=== PATIENT | female | born 1950 | race Caucasian/White ===

== ENCOUNTER 2021-01-17 20:48 | Emergency (ER) | payer OTHER ==
[~2021-01-17] VITALS: Ht 149.9 cm; Wt 53.5 kg
[2021-01-17 20:53] VITALS: BP_SYST 194
[2021-01-17] MEDS ORDERED: MECLIZINE HCL 25 MG TABLET (ANITVERT) PO ONE (22:30)
[2021-01-17 23:28] LABS: BILIRUBIN,URINE NEGATIVE (NEGATIVE); BLOOD, URINE 1+ (NEGATIVE); CLARITY/URINE CLEAR (CLEAR); COLOR,URINE YELLOW (YELLOW); GLUCOSE,URINE NEGATIVE (NEGATIVE); KETONES,URINE NEGATIVE (NEGATIVE); LEUKOCYTE ESTERASE ,URINE NEGATIVE (NEGATIVE); NITRITE, URINE NEGATIVE (NEGATIVE); PH,URINE 7.5 (5.0-8.0); PROTEIN URINE 2+ (NEGATIVE); UROBILINOGEN,URINE 0.2 (0.2-1.0)
[2021-01-17 23:31] LABS: BACTERIA,URINE FEW /HPF (None Seen); WBC,URINE 0-3 /HPF (0-3)
[2021-01-17 23:34] LABS: BASOPHILS % (AUTO) 0.3 % (0.0-2.0); EOSINOPHILS % (AUTO) 0.1 % (0.0-4.0); HEMATOCRIT 38.1 % (36-48); HEMOGLOBIN 13.3 g/dL (12.0-16.0); LYMPHOCYTES # (AUTO) 1.9 K/uL (1.0-5.5); LYMPHOCYTES % (AUTO) 19.2 % (20.5-51.5); MEAN CORPUSCULAR HEMOGLOBIN 29 pg (27-31); MEAN CORPUSCULAR HGB CONC 35 % (32-36); MEAN CORPUSCULAR VOLUME 84 fL (79.0-98.0); MONOCYTES # (AUTO) 0.4 K/uL (0.0-1.0); MONOCYTES % (AUTO) 3.9 % (1.7-9.3); NEUTROPHILS # (AUTO) 7.6 K/uL (1.8-7.7); NEUTROPHILS % (AUTO) 76.5 % (40.0-70.0); PLATELET COUNT (AUTO) 202 K/uL (130-430); RED BLOOD CELL COUNT(AUTO) 4.56 MIL/uL (4.2-6.2); RED CELL DISTRIBUTION WIDTH 12.8 % (9.0-15.0); WHITE BLOOD COUNT (AUTO) 9.9 K/uL (4.8-10.8)
[2021-01-17 23:40] LABS: CALCIUM 9.5 mg/dL (8.4-11.0); CREATININE 0.79 mg/dL (0.55-1.30); POTASSIUM 3.4 mmol/L (3.5-5.1)
[2021-01-17 23:53] LABS: ALBUMIN 4.3 g/dL (3.4-4.8); FREE T4 (FREE THYROXINE) 1.3 ng/dl (0.8-1.5); THYROID STIMULATING HORMONE 4.6 uIu/mL (0.36-3.74); TOTAL BILIRUBIN 0.7 mg/dL (0.0-1.0)
[2021-01-17 23:58] LABS: INR 0.9 (0.8-1.2); PROTHROMBIN TIME 9.7 SECS (9.5-12.5)
[2021-01-18] MEDS ORDERED: MECL-103 PO (01:31)
[2021-01-18 01:39] VITALS: BP_SYST 125
== END 2021-01-18 01:39 | disposition home or self-care (01) ==
LOC: SED 20:48
DX: R42 Dizziness and giddiness (principal); Z88.1 Allergy status to other antibiotic agents; Z79.899 Other long term (current) drug therapy
CPT/HCPCS: 36415; 70450; 76376; 80053; 81000; 84439; 84443; 84484; 85025; 85610; 85730; 93005; 99285; J8597

== ENCOUNTER 2022-08-20 22:56 | Emergency (ER) | payer OTHER ==
[~2022-08-20] VITALS: Ht 149.9 cm; Wt 52.2 kg
[~2022-08-20 22:56] MED LIST: MECL-103 PO
[2022-08-20 23:11] VITALS: BP_SYST 149
--- NOTE | 2022-08-20 23:19 | NUR ---
Patient triaged and placed in waiting room. VSS and patient appears in no acute distress at this time. Accompanied by , awaiting available bed, and MD Serrano notified of need for MSE.
--- NOTE | 2022-08-20 23:23 | NUR ---
Patient to ER bed H2 to gown for evaluation. Side rails up.
--- NOTE | 2022-08-20 23:25 | NUR ---
ER Dr. Serrano at bedside examining patient.
[2022-08-20] MEDS ORDERED: KETOROLAC TROMETHAMINE 60 MG/2 ML VIAL IM ONE (23:30)
[2022-08-20] MEDS ORDERED: IBUP-1969 PO (23:46)
[2022-08-20] MEDS ORDERED: HYDR-3917 PO (23:46)
--- NOTE | 2022-08-20 23:56 | NUR ---
PT MEDICATED ORDERED; TOLERATED WELL.
[2022-08-21 00:05] VITALS: BP_SYST 134
--- NOTE | 2022-08-21 00:08 | NUR ---
Patient given written and verbal discharge instructions and verbalizes understanding. ER MD Serrano discussed with patient the results and treatment provided. Patient in stable condition. ID arm band removed. Rx of [place] and Ibuprofen sent to preferred pharmacy. Patient educated on pain management and to follow up with PMD. Pain Scale 1/10. Opportunity for questions provided and answered. Medication side effect fact sheet provided.
== END 2022-08-20 23:59 | disposition home or self-care (01) ==
LOC: SED 22:56
DX: M25.512 Pain in left shoulder (principal); I10 Essential (primary) hypertension; Z88.1 Allergy status to other antibiotic agents; Z79.899 Other long term (current) drug therapy
CPT/HCPCS: 99283; 96372; J1885

== ENCOUNTER 2022-09-05 19:10 | Emergency (ER) | payer OTHER ==
[~2022-09-05] VITALS: Ht 149.9 cm; Wt 53.5 kg
[~2022-09-05 19:10] MED LIST changes: +HYDR-3917 PO; +IBUP-1969 PO
[2022-09-05] MEDS ORDERED: ONDANSETRON HCL 4 MG/2 ML VIAL IVP ONE (19:45)
[2022-09-05] MEDS ORDERED: MAG HYDROX/AL HYDROX/SIMETH 30 ML, DICYCLOMINE HCL 20 MG, LIDOCAINE VISCOUS 2% 15ML (PO... PO ONE ×3 (19:45)
[2022-09-05] MEDS ORDERED: NACL 0.9% 1,000 ML IV ONE (19:45)
[2022-09-05 20:05] VITALS: BP_SYST 137
[2022-09-05 20:09] LABS: BASOPHILS % (AUTO) 0.2 % (0.0-2.0); EOSINOPHILS % (AUTO) 0.1 % (0.0-4.0); HEMATOCRIT 41.6 % (36-48); HEMOGLOBIN 14.5 g/dL (12.0-16.0); LYMPHOCYTES # (AUTO) 2.9 K/uL (1.0-5.5); LYMPHOCYTES % (AUTO) 18.1 % (20.5-51.5); MEAN CORPUSCULAR HEMOGLOBIN 30 pg (27-31); MEAN CORPUSCULAR HGB CONC 35 % (32-36); MEAN CORPUSCULAR VOLUME 86 fL (79.0-98.0); MONOCYTES # (AUTO) 0.8 K/uL (0.0-1.0); MONOCYTES % (AUTO) 4.8 % (1.7-9.3); NEUTROPHILS # (AUTO) 12.2 K/uL (1.8-7.7); NEUTROPHILS % (AUTO) 76.8 % (40.0-70.0); PLATELET COUNT (AUTO) 238 K/uL (130-430); RED BLOOD CELL COUNT(AUTO) 4.83 MIL/uL (4.2-6.2); WHITE BLOOD COUNT (AUTO) 15.8 K/uL (4.8-10.8)
--- NOTE | 2022-09-05 20:13 | NUR ---
Placed in room 7 . Placed on panel monitor, blood pressure machine and pulse oximeter. To gown for exam. Side rails up. pt is aa&ox4. afebrile. nad. c/o hemoptysis & blood in stool that started last night. been vomiting so kept herself NPO the whole day today. nka.[email or web address]: htn, hypothyroidism. vertigo. appendectomy in the past.
--- NOTE | 2022-09-05 20:13 | NUR ---
ER Dr. JOINER at bedside examining patient.
[2022-09-05] MEDS ORDERED: MORPHINE 4 MG INJ. 4 MG/ML VIAL IVP ONE (20:15)
--- NOTE | 2022-09-05 20:15 | NUR ---
# 20 gauge angiocath placed to r ac. Use of asceptic technique. Opsite placed over site. Blood return noted. Blood for lab drawn from site. Flushed with 10 cc of normal saline. No evidence of infiltration noted. Patient tolerated well.
[2022-09-05 20:20] LABS: ANION GAP 10 (5-15); CALCIUM 9.7 mg/dL (8.4-11.0); CHLORIDE 96 mmol/L (98-107); CREATININE 0.91 mg/dL (0.55-1.30); GLUCOSE 126 mg/dL (70-99); UREA NITROGEN, BLOOD 18 mg/dL (8-21)
[2022-09-05 20:25] LABS: ALANINE AMINOTRANSFERASE 41 U/L (12-78); ALBUMIN 4.4 g/dL (3.4-4.8); ASPARTATE AMINOTRANSFERASE 26 U/L (10-37); LIPASE 302 U/L (73-393); TOTAL BILIRUBIN 0.9 mg/dL (0.0-1.0)
[2022-09-05] MEDS ORDERED: POTASSIUM CHLORIDE 10 MEQ TAB.PRT.SR PO ONE (21:00)
[2022-09-05] MEDS ORDERED: HYDR-3917 PO (21:31)
[2022-09-05] MEDS ORDERED: CIPR500T5 PO (21:31)
[2022-09-05] MEDS ORDERED: METR-154 PO (21:31)
[2022-09-05] MEDS ORDERED: ONDA-8 TL (21:31)
[2022-09-05 21:37] LABS: BILIRUBIN,URINE NEGATIVE (NEGATIVE); BLOOD, URINE TRACE (NEGATIVE); CLARITY/URINE CLEAR (CLEAR); COLOR,URINE YELLOW (YELLOW); GLUCOSE,URINE NEGATIVE (NEGATIVE); KETONES,URINE NEGATIVE (NEGATIVE); LEUKOCYTE ESTERASE ,URINE TRACE (NEGATIVE); NITRITE, URINE NEGATIVE (NEGATIVE); PH,URINE 6.5 (5.0-8.0); PROTEIN URINE NEGATIVE (NEGATIVE); UROBILINOGEN,URINE 0.2 (0.2-1.0)
[2022-09-05 21:44] LABS: BACTERIA,URINE RARE /HPF (None Seen); MUCUS,URINE 1+ /LPF (None Seen)
[2022-09-05 22:03] VITALS: BP_SYST 138
--- NOTE | 2022-09-05 22:04 | NUR ---
Patient given written and verbal discharge instructions and verbalizes understanding. ER MD DR. JOINER discussed with patient the results and treatment provided. Patient in stable condition. ID arm band removed. IV catheter removed intact and dressing applied, no active bleeding. Rx of CIPRO, FLAGYL, NORCO given. Patient educated on pain management and to follow up with PMD. Pain Scale 0/10. Opportunity for questions provided and answered. Medication side effect fact sheet provided.
== END 2022-09-05 22:04 | disposition home or self-care (01) ==
LOC: SED 19:10
DX: K52.9 Noninfective gastroenteritis and colitis, unspecified (principal); R10.84 Generalized abdominal pain; R11.10 Vomiting, unspecified; I10 Essential (primary) hypertension; Z88.1 Allergy status to other antibiotic agents; Z79.899 Other long term (current) drug therapy
CPT/HCPCS: 99285; 74176; 96374; 96361; 96375; 80053; 81000; 83690; 85025; 36415; 76376; J2001; J2405; J2270; J7030